=== PATIENT | female | born 1950 ===

== ENCOUNTER 2020-05-28 19:07 | Emergency (ER) | payer MEDICARE, OTHER ==
[2020-05-28 21:07] LABS: ANION GAP 10.6 mEq/L (7-13); CHLORIDE,CL 104 mmol/L (98-107); SODIUM,NA 142 mmol/L (136-145)
[2020-05-28] MEDS ORDERED: Iopamidol 612 MG/ML 100 ML Bottle IVPUSH ONE (21:31)
--- NOTE | 2020-05-28 22:26 | CT ---
PROCEDURE INFORMATION: Exam: CT Chest With Contrast; Diagnostic Exam date and time: 05/28/2020 9:42 PM Age: 69 years old Clinical indication: Other: Mid back pain radiating to chest TECHNIQUE: Imaging protocol: Diagnostic computed tomography of the chest with contrast. Radiation optimization: All CT scans at this facility use at least one of these dose optimization techniques: automated exposure control; mA and/or kV adjustment per patient size (includes targeted exams where dose is matched to clinical indication); or iterative reconstruction. Contrast material: [id number]; Contrast volume: 75 ml; Contrast route: INTRAVENOUS (IV); COMPARISON: No relevant prior studies available. FINDINGS: Thyroid: The thyroid gland is normal. Lungs: No acute interstitial or airspace disease. The airways are patent. Pleural spaces: Reticular pleural based scarring at the level of the lingula and left upper lobe, most probably related to postradiation changes. No pleural effusions or pneumothorax. Heart: Question of an LAD stent. Correlation with history is recommended. Heart is of normal size and morphology. No pericardial thickening or effusion. Pulmonary arteries: Normal in course and caliber. Aorta: The aorta demonstrates mild atherosclerotic calcification. Aorta is otherwise unremarkable. Lymph nodes: Chronic scarring in the bilateral axilla, favoring prior lymph node resection. Enlarged 1.5 cm right axillary lymph node. No other concerning thoracic adenopathy is appreciated. Bones/joints: No acute skeletal pathology. Moderate multilevel degenerative changes of the spine, as manifested by multilevel anterior osteophytes and multilevel decrease in intervertebral disc space. Soft tissues: Bilateral mastectomy. Other findings: The visualized intra-abdominal structures demonstrate no acute findings. IMPRESSION: 1. Enlarged right axillary lymph nodes, nonspecific. 2. Negative for acute thoracic pathology. 3. Incidental findings as detailed above.
--- NOTE | 2020-05-28 22:28 | CT ---
PROCEDURE INFORMATION: Exam: CT Thoracic Spine Without Contrast Exam date and time: 05/28/2020 9:42 PM Age: 69 years old Clinical indication: Other: Mid back pain radiating to chest TECHNIQUE: Imaging protocol: Computed tomography images of the thoracic spine without contrast. Radiation optimization: All CT scans at this facility use at least one of these dose optimization techniques: automated exposure control; mA and/or kV adjustment per patient size (includes targeted exams where dose is matched to clinical indication); or iterative reconstruction. COMPARISON: No relevant prior studies available. FINDINGS: Vertebrae: No acute skeletal pathology. Moderate multilevel degenerative changes of the spine, as manifested by multilevel anterior osteophytes and multilevel decrease in intervertebral disc space. No aggressive osseous lesions. Discs/Spinal canal/Neural foramina: The spinal canal is patent. No significant neural foraminal stenosis is appreciated. Soft tissues: The prevertebral soft tissues are normal. Paravertebral soft tissues are unremarkable. IMPRESSION: 1. Negative for acute skeletal pathology. 2. Incidental findings as detailed above.
--- NOTE | 2020-05-28 22:48 | EDM.PDOC ---
ED HPI GENERAL MEDICAL PROBLEM - General Chief Complaint: Back Pain or Injury Stated Complaint: BACKPAIN Time Seen by Provider: 05/28/20 19:45 Source of Information: Reports: Patient History Limitations: Reports: No Limitations - History of Present Illness INITIAL COMMENTS - FREE TEXT/NARRATIVE: ED ambulatory with c/o mid upper back pain radiating below ribs to chest. Denies injury. No SOB. Hx stents 2012 and 2013, Worried could be heart realated. Notes onset 6 weeks ago. Notices more with walking and use of specific shoe, Carriying groceries or driving. No fever chills or cough. Primary care in [place] here visiting family. Drove yesterday. took 2 tylenol at bed and pain relieved. Worse after shopping today. 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, Home Treatments Middle Posterior Back Pain Score (Numeric/FACES): 5 - Related Data Allergies Allergy/AdvReac Type Severity Reaction Status Date / Time dapsone Allergy Other Verified 05/28/20 19:46 Home Meds: Home Meds Acetaminophen [Pain Relief Extra Strength] 500 mg PO BID 05/28/20 [History] Amoxicillin 2,000 mg PO ASDIRECTED 05/28/20 [History] Aspirin 81 mg PO DAILY 05/28/20 [History] Calcium Carbonate [Calcium] 1,200 mg PO DAILY 05/28/20 [History] Cholecalciferol (Vitamin D3) [Vitamin D3] 4,000 units PO DAILY 05/28/20 [History] Clopidogrel [Plavix] 75 mg PO DAILY 05/28/20 [History] Dapagliflozin Propanediol [Farxiga] 10 mg PO DAILY 05/28/20 [History] Dulaglutide [Trulicity] 3 mg IM WEEKLY 05/28/20 [History] Gabapentin [Neurontin] 300 mg PO BID 05/28/20 [History] Insulin Glargine,Hum.Rec.Anlog [Touperrio Solostar] 32 units SQ BEDTIME 05/28/20 [History] Isosorbide Mononitrate [Imdur] 30 mg PO DAILY 05/28/20 [History] Losartan Potassium [Cozaar] 100 mg PO DAILY 05/28/20 [History] Metoprolol Succinate 50 mg PO DAILY 05/28/20 [History] Multivitamin 1 tab PO DAILY 05/28/20 [History] Pantoprazole Sodium [Protonix] 20 mg PO DAILY 05/28/20 [History] atorvaSTATin [Lipitor] 80 mg PO DAILY 05/28/20 [History] Past Medical History HEENT History: Reports: Impaired Vision Cardiovascular History: Reports: CAD, High Cholesterol, Hypertension, [place], Stents Gastrointestinal History: Reports: GERD Musculoskeletal History: Reports: Amputation, Osteoporosis Endocrine/Metabolic History: Reports: Diabetes, Type II - Past Surgical History Cardiovascular Surgical History: Reports: Coronary Artery Stent GI Surgical History: Reports: Appendectomy, Cholecystectomy Female Surgical History: Reports: Mastectomy Other Female Surgeries/Procedures: R) mast in / L) mast Social & Family History - Family History Family Medical History: No Pertinent Family History - Tobacco Use Tobacco Use Status *Q: Unknown Ever Used Tobacco - Caffeine Use Caffeine Use: Reports: None - Recreational Drug Use Recreational Drug Use: No ED ROS GENERAL - Review of Systems Review Of Systems: Comprehensive ROS is negative, except as noted in HPI. ED EXAM, UPPER BACK/NECK PAIN - Physical Exam Exam: See Below Exam Limited By: No Limitations General Appearance: Alert, No Apparent Distress, Anxious (mild) Eye Exam: Bilateral Eye: EOMI Ears Exam: Normal External Exam Nose Exam: Normal Inspection Throat/Mouth Exam: Normal Inspection, Normal Lips, Normal Voice Head Exam: Atraumatic, Normocephalic Neck Exam: Full Range of Motion Cardiovascular/Respiratory: Regular Rate, Rhythm, Normal Peripheral Pulses, No Respiratory Distress. No: JVD, Rales, Rhonchi, Wheezing GI/Abdominal: Normal Bowel Sounds, Soft Back Exam: Normal Inspection. No: Decreased Range of Motion, Paraspinal Tenderness, Vertebral Tenderness Extremities: Normal Inspection, Normal Range of Motion Neurologic: No Motor/Sensory Deficits, Alert Skin Exam: Normal Color #1 Interpretation EKG Date: 05/28/20 Time: 20:57 Rhythm: NSR Rate (Beats/Min): 76 [place]: Normal P-Wave: Present QRS: Normal ST-T: Normal QT: Normal Comparison: NA - No Prior EKG Course - Vital Signs Last Recorded V/S: Last Vital Signs Temp 97.3 F 05/28/20 19:41 Pulse 88 05/28/20 19:41 Resp 16 05/28/20 19:41 BP 160/65 H 05/28/20 19:41 Pulse Ox 100 05/28/20 19:41 - Orders/Labs/Meds Labs: Laboratory Tests 05/28/20 05/28/20 05/28/20 Range/Units 20:23 20:23 20:23 WBC 5.7 (5.0-10.0) 10^3/uL RBC 3.88 L (4.2-5.4) 10^6/uL Hgb 13.0 (12.0-16.0) g/dL Hct 39.3 (37.0-47.0) % MCV 101.3 H (80-100) fL MCH 33.5 (27.0-34.0) pg MCHC 33.1 (33.0-35.0) g/dL Plt Count 200 (150-450) 10^3/uL Neut % (Auto) 54.3 (42.2-75.2) % Lymph % (Auto) 32.8 (20.5-50.1) % [place] % (Auto) 10.0 H (2-8) % Eos % (Auto) 2.5 (1.0-3.0) % Baso % (Auto) 0.4 (0.0-1.0) % D-Dimer, Quantitative 120 (0-400) ng/mL Sodium 142 (136-145) mmol/L Potassium 4.6 (3.5-5.1) mmol/L Chloride 104 (98-107) mmol/L Carbon Dioxide 32 (21-32) mmol/L Anion Gap 10.6 (7-13) mEq/L BUN 20 H (7-18) mg/dL Creatinine 0.93 (0.55-1.02) mg/dL Est Cr Clr Drug Dosing 41.01 mL/min Estimated GFR (MDRD) 60 BUN/Creatinine Ratio 21.5 (No establ ref range) Glucose 121 H (74-99) mg/dL Calcium 9.9 (8.5-10.1) mg/dL Total Bilirubin 0.5 (0.2-1.0) mg/dL AST 23 (15-37) U/L ALT 30 (14-59) U/L Alkaline Phosphatase 68 (46-116) U/L Troponin I < 0.017 (0.000-0.056) ng/mL Total Protein 7.2 (6.4-8.2) g/dL Albumin 3.6 (3.4-5.0) g/dL Globulin 3.6 Albumin/Globulin Ratio 1.0 Amylase 53 (25-115) U/L Lipase 179 (73-393) U/L Meds: Medications Discontinued Medications Generic Name Dose Route Start Last Admin Trade Name Asmita PRN Reason Stop Dose Admin Iopamidol 100 ml 05/28/20 21:31 05/28/20 22:20 Iopamidol 612 Mg/Ml 100 Ml Bottle IVPUSH 05/28/20 21:32 75 ml ONETIME ONE Administration - Re-Assessments/Exams Free Text/Narrative Re-Assessment/Exam: 05/28/20 22:59 Results of labs and scans discussed with patient. Recommend follow up with primary care and cardiology. Cardiology appointment preset first week in July. Departure - Departure Time of Disposition: 22:40 Disposition: Home, Self-Care 01 Condition: Good Clinical Impression: Back pain Qualifiers: Back pain location: thoracic back pain Chronicity: unspecified Back pain laterality: midline Qualified Code(s): M54.6 - Pain in thoracic spine - Discharge Information *PRESCRIPTION DRUG MONITORING PROGRAM REVIEWED*: No *COPY OF PRESCRIPTION DRUG MONITORING REPORT IN PATIENT ISADORA: No Instructions: Chronic Back Pain, [id number] Forms: ED Department Discharge Additional Instructions: tylenol 500mg every 4 hours as needed for discomfort clinic follow up urgent follow up chest pain, shortness of breath trial bengay type ointment Sepsis Event Note (ED) - Evaluation Sepsis Screening Result: No Definite Risk - Focused Exam Vital Signs: Vital Signs Temp Pulse Resp BP Pulse Ox 05/28/20 19:41 97.3 F 88 16 160/65 H 100
== END 2020-05-28 22:50 | disposition home or self-care (01) ==
LOC: DL.ED 19:07
DX: M54.6 Pain in thoracic spine (principal); I25.10 Atherosclerotic heart disease of native coronary artery without angina pectoris; E78.00 Pure hypercholesterolemia, unspecified; I10 Essential (primary) hypertension; I25.2 Old myocardial infarction; K21.9 Gastro-esophageal reflux disease without esophagitis; E11.9 Type 2 diabetes mellitus without complications; Z95.5 Presence of coronary angioplasty implant and graft; Z79.82 Long term (current) use of aspirin; Z79.02 Long term (current) use of antithrombotics/antiplatelets; Z79.4 Long term (current) use of insulin; Z79.899 Other long term (current) drug therapy; Z88.8 Allergy status to other drugs, medicaments and biological substances
CPT/HCPCS: 36415; 71260; 72128; 80053; 82150; 83690; 84484; 85025; 85379; 93005; 93010; 99284; Q9967